=== PATIENT | female | born 1940 | race Caucasian/White ===

== ENCOUNTER 2024-09-03 12:43 | Emergency (ER) | payer MEDICARE ==
[~2024-09-03] VITALS: Ht 165.1 cm; Wt 74.0 kg
[2024-09-03] MEDS ORDERED: DIVALPROEX SOD250 M1 PO (13:31)
[2024-09-03] MEDS ORDERED: ATORVASTATIN CA20 MG PO (13:32)
[2024-09-03] MEDS ORDERED: QUETIAPINE FUM100 MG PO (13:33)
[2024-09-03] MEDS ORDERED: CITALOPRAM HBR10 MG PO (13:33)
[2024-09-03] MEDS ORDERED: MEMANTINE HCL E21 MG PO (13:33)
[2024-09-03 13:54] LABS: BILIRUBIN, URINE NEGATIVE (negative); BLOOD/HGB, URINE NEGATIVE (Negative); KETONE, URINE NEGATIVE (Negative); LEUK ESTERASE, URINE SMALL (negative); NITRITE, URINE POSITIVE (negative); PH, URINE 6.5 (5-7)
[2024-09-03 14:08] LABS: CRYSTALS, URINE AMORPHOUS PHOSPH 1+ (0-1+); EPITHELIAL CELLS, URINE SQUAMOUS 1+ /lpf (0-1+); WHITE BLOOD CELLS, URINE 21-40 /HPF (0-5)
[2024-09-03 14:09] LABS: BACTERIA, URINE 1+ /hpf (negative); CASTS, URINE NONE SEEN \\lpf; COLLECTION TYPE, URINE CATH; REFLEX CULTURE, URINE Yes (No)
[2024-09-03 14:15] VITALS: BP 124/64
[2024-09-03] MEDS ORDERED: NITROFURAN50 MG/5 ML PO (14:27)
== END 2024-09-03 14:30 | disposition home or self-care (01) ==
LOC: ED 12:43
PROVIDERS: Emergency Medicine
DX: N39.0 Urinary tract infection, site not specified (principal); G30.9 Alzheimer's disease, unspecified; F02.818 Dementia in other diseases classified elsewhere, unspecified severity, with other behavioral disturbance; Z88.2 Allergy status to sulfonamides
CPT/HCPCS: 51701; 81001; 87088; 99283-25

== ENCOUNTER 2024-11-13 15:56 | Inpatient (IN) | payer MEDICARE ==
[~2024-11-13] VITALS: Ht 165.1 cm; Wt 51.1 kg
[~2024-11-13 15:56] MED LIST: ATORVASTATIN CA20 MG PO; CITALOPRAM HBR10 MG PO; DIVALPROEX SOD250 M1 PO; MEMANTINE HCL E21 MG PO; NITROFURAN50 MG/5 ML PO; QUETIAPINE FUM100 MG PO
[2024-11-13 16:35] LABS: BASOPHILS 0.5 % (0.1-1.2); EOSINOPHILS 1.5 % (0.7-5.8); HEMOGLOBIN 12.1 g/dL (11.2-15.7); LYMPHOCYTES 23.1 % (19.3-51.7); MCH 31.2 PG (25.6-32.2); MCHC 30.3 g/dL (32.2-35.5); MCV 103.1 fL (79.4-94.8); MONOCYTES 9.3 % (4.7-12.5); NEUTROPHILS 65.3 % (34.0-71.1); PLATELET COUNT 192 K/uL (182-369); RBC 3.88 M/uL (3.93-5.22)
[2024-11-13 16:47] LABS: ALBUMIN 3.4 g/dL (3.4-5.0); ALBUMIN/GLOBULIN RATIO 0.97 (1.1-2.4); ANION GAP 13.9 (7-21); BILIRUBIN, TOTAL 0.6 mg/dL (0.2-1.0); BUN/CREATININE RATIO 58.4 (6.0-28.6); CALCIUM 8.9 mg/dL (8.5-10.1); CREATININE, SERUM 1.13 mg/dL (0.55-1.02); POTASSIUM 3.9 mmol/L (3.5-5.1); PROTEIN, TOTAL 6.9 g/dL (6.4-8.2)
[2024-11-13 16:59] LABS: BILIRUBIN, URINE NEGATIVE (negative); BLOOD/HGB, URINE NEGATIVE (Negative); KETONE, URINE TRACE (Negative); LEUK ESTERASE, URINE NEGATIVE (negative); NITRITE, URINE NEGATIVE (negative)
[2024-11-13] MEDS ORDERED: DEXTROSE 5% 1,000 ML IV SCH (17:00)
[2024-11-13 17:10] LABS: BACTERIA, URINE NONE SEEN /hpf (negative); CASTS, URINE NONE SEEN \\lpf; COLLECTION TYPE, URINE CLEAN CATCH; CRYSTALS, URINE NONE SEEN (0-1+); EPITHELIAL CELLS, URINE 0 /lpf (0-1+); RED BLOOD CELLS, URINE 0-1 /hpf (0-5); REFLEX CULTURE, URINE No (No); WHITE BLOOD CELLS, URINE 0-1 /HPF (0-5)
[2024-11-13] MEDS ORDERED: ondansetron HCL 4 MG/2 ML VIAL IV PRN (18:45)
[2024-11-13] MEDS ORDERED: ACETAMINOPHEN 325 MG TAB PT PRN (18:45)
[2024-11-13 19:03] LABS: BUN/CREATININE RATIO 58.87 (6.0-28.6); CALCIUM 9.3 mg/dL (8.5-10.1); CREATININE, SERUM 1.07 mg/dL (0.55-1.02)
--- NOTE | 2024-11-13 20:35 | NUR ---
PT ARRIVED TO ROOM 120 FROM ER VIA STRETCHER. ON ROOM AIR. EYES OPEN. IRRITABLE AT TIMES, NON VERBAL BUT MAKES NOISES. MOVING ARMS AND LEGS. IVF INFUSING. VITALS AND ASSESSMENTS COMPLETED SHORTLY AFTER. CPOX ON AT BEDSIDE. LUNGS CLER DIM AT BASES. ABD SOFT, LAST BM PER FAMILY 11/10. PTS ABD SOFT, NONTENDER. NO SKIN ISSUES NOTED ON THIS ADMIT. ALL CARES EXPLAINED TO PT AND FAMILY. UNABLE TO ASSESS PTS COMPREHENSION AT THIS TIME. BED ALRMS FOR SAFETY
[2024-11-13 20:43] VITALS: BP 141/779
[2024-11-13 22:06] LABS: ANION GAP 11.5 (7-21); BUN/CREATININE RATIO 61.16 (6.0-28.6); CREATININE, SERUM 1.03 mg/dL (0.55-1.02); POTASSIUM 3.5 mmol/L (3.5-5.1)
--- NOTE | 2024-11-13 23:19 | NUR ---
turns and repositions self in bed, Bed alr, fall precautions in place. on room air, cpox on at bedside, sats wnl. IVF infusing
[2024-11-14] VITALS (10 sets, daily range): BP systolic 99–144; BP diastolic 43–71
--- NOTE | 2024-11-14 01:01 | NUR ---
Not cooperative with labs, labs drawn procedure explained, pt alert to self only. IVf infusing w/o problems. attends dry. turns and repositions self in bed, making small, "no , get away" only. calmed down. Bed alrm in place.
[2024-11-14 01:11] LABS: ANION GAP 13.1 (7-21); BUN/CREATININE RATIO 53.63 (6.0-28.6); CALCIUM 8.9 mg/dL (8.5-10.1); CREATININE, SERUM 1.1 mg/dL (0.55-1.02); POTASSIUM 3.1 mmol/L (3.5-5.1)
--- NOTE | 2024-11-14 01:20 | NUR ---
NA 162, IVF increased to 125cc. pt calm eyes closed.
--- NOTE | 2024-11-14 02:29 | NUR ---
EYES CLOSED, BUT MOVING ALL EXTREMITIES. IVF INFUSING W/O PROBLEMS
--- NOTE | 2024-11-14 04:01 | NUR ---
NOT VERY COOP WITH LAB DRAWS OR CHANGING SOILED ATTENDS. PROCEDURES EXPLAINED. AWAKE, TRYING TO PUNCH AND KICK, IRRITABLE ANGRY MOOD AND TONE OF VOICE "NO, NO, NO" STATED. PROCEDURES EXPLAINED UNABLE TO COMPREHEND. iNCONTINENT OF URINE. ATTENDS CHANGD SKIN CARE, RED PINPOINT LAVERNE BUTTOCKS AREA. LOTION APPLIED. CPOX ON R MIDDLE TOE, SATS WNL. IVF INFUSING W/O PROBLEMS
[2024-11-14 04:07] LABS: ANION GAP 13.3 (7-21); BUN/CREATININE RATIO 60.63 (6.0-28.6); CALCIUM 8.6 mg/dL (8.5-10.1); CREATININE, SERUM 0.94 mg/dL (0.55-1.02); POTASSIUM 3.3 mmol/L (3.5-5.1)
[2024-11-14 05:58] LABS: BASOPHILS 0.6 % (0.1-1.2); EOSINOPHILS 2.8 % (0.7-5.8); HEMATOCRIT 35.9 % (34.1-44.9); HEMOGLOBIN 11.2 g/dL (11.2-15.7); LYMPHOCYTES 23.1 % (19.3-51.7); MCH 31.8 PG (25.6-32.2); MCHC 31.2 g/dL (32.2-35.5); MONOCYTES 8.8 % (4.7-12.5); NEUTROPHILS 64.2 % (34.0-71.1); PLATELET COUNT 187 K/uL (182-369); RBC 3.52 M/uL (3.93-5.22)
--- NOTE | 2024-11-14 05:58 | NUR ---
Pt more awake, not cooperative with lab draw, repositioning. on romm air. non verbalw few words a times, unable to do bedside swallowing assessment as pt would not open mouth and clinched teetch while trying to do this assesment unable to do oral care either. attends dry. NA
[2024-11-14 06:12] LABS: ANION GAP 14.4 (7-21); BUN/CREATININE RATIO 68.67 (6.0-28.6); CALCIUM 8.7 mg/dL (8.5-10.1); CREATININE, SERUM 0.83 mg/dL (0.55-1.02); MAGNESIUM 2.7 mg/dL (1.8-2.4); PHOSPHORUS, INORGANIC 3.1 mg/dL (2.5-4.9); POTASSIUM 3.4 mmol/L (3.5-5.1)
--- NOTE | 2024-11-14 07:43 | NUR ---
MORNING REPORT RECIEVED FROM RANDY ZABALA. PT LAYING FLAT IN BED WITH BED ALARM ON FOR PT SAFETY. PT IS STILL CONFUSED AND ONLY ORIENTED TO SELF. PT KEEPS BENDING ARM AND CAUSING OCCLUSION. PT HAS CALL LIGHT IN REACH AND CURTAIN OPEN FOR PT SAFETY.
--- NOTE | 2024-11-14 08:57 | NUR ---
SET PATIENT UP SO HER COULD FEED HER.
[2024-11-14] MEDS ORDERED: POTASSIUM CHLORIDE 40 MEQ,LIDOCAINE HCL 1% 40 MG in DEXTROSE 5% 250 ML IV ONE (09:00)
[2024-11-14] MEDS ORDERED: ENOXAPARIN SODIUM 40 MG/0.4 ML SYR SUB-Q SCH (09:00)
--- NOTE | 2024-11-14 09:00 | NUR ---
PT SITTING UP IN BED AT THIS TIME. PT IS AT THE BEDSIDE AND PT IS CURRENTLY EATING BREAKFAST WITH ASSISTANCE FROM . PT WAS ABLE TO SWALLOW WITHOUT DIFICULTY. PT CALL LIGHT IN REACH.
--- NOTE | 2024-11-14 10:15 | NUR ---
PT LAYING FLAT IN BED AT THIS TIME. PT IV IN THE LEFT AC STARTED LEAKING AND NEEDED NEW IV PLACED. PT TOLERATED IV START POORLY AND REQUIRED THREE RN'S TO PLACE IV SAFELY. PT HAS CALL LIGHT IN REACH. BED ALARM ACTIVE AT THIS TIME.
--- NOTE | 2024-11-14 11:40 | NUR ---
PT LAYING IN BED, PT HAS A FAMILY MEMEBER IN ROOM WITH PT AND PT IS CALM AND HAS NO CURRENT NEEDS AT THIS TIME. PT CALL LIGHT IN REACH AT THIS TIME.
[2024-11-14] MEDS ORDERED: PHARMACY RENAL DOSE ADJUSTMENT 1 DOSE MISC PO SCH (12:00)
[2024-11-14 12:07] LABS: ANION GAP 14.1 (7-21); BUN/CREATININE RATIO 56.04 (6.0-28.6); CALCIUM 8.6 mg/dL (8.5-10.1); CREATININE, SERUM 0.91 mg/dL (0.55-1.02); POTASSIUM 3.1 mmol/L (3.5-5.1)
--- NOTE | 2024-11-14 12:49 | NUR ---
PT SITTING UP IN BED AT THIS TIME. PT HAS NO CONCERNS AND HAS FLUIDS AND POTASSIUM RUNNING AT THIS TIME. PT CALL LIGHT IN REACH.
[2024-11-14] MEDS ORDERED: MIRALAX17 GM PO (13:38)
[2024-11-14] MEDS ORDERED: VITAMIN D350 MCG PO (13:39)
[2024-11-14] MEDS ORDERED: ACETAMINOPHEN500 M1 PO (13:43)
[2024-11-14] MEDS ORDERED: IMODIUM A-D2 M2 PO (13:45)
[2024-11-14] MEDS ORDERED: AZO STANDARD95 MG PO (13:45)
[2024-11-14] MEDS ORDERED: ALLEGRA ALLERG180 MG PO (13:46)
[2024-11-14] MEDS ORDERED: MILK OF MA400 MG/5 M PO (13:47)
--- NOTE | 2024-11-14 13:48 | NUR ---
MED REC COMPLETE
--- NOTE | 2024-11-14 15:01 | NUR ---
PT LAYING IN BED WITH FAMILY PRESENT AT THIS TIME. PT FAMILY HAS NO CONCERNS AND PT IS CALM AT THIS TIME. PT CALL LIGHT IN REACH IF NEEDED.
--- NOTE | 2024-11-14 16:44 | NUR ---
PT LAYING IN BED AT THIS TIME WITH EYES CLOSED CHEST RISE EQUAL BILAT, FAMILY IS CURRENTLY IN ROOM AT THIS TIME AND PT HAS CALL LIGHT IN REACH.
--- NOTE | 2024-11-14 18:02 | NUR ---
PT LAYING IN BED, PT FAMILY AT BEDSIDE. PT TOLERATED DINNER WELL AND HAD LAB DRAW FOR SODIUM LEVELS. THREE NURSING STAFF WERE IN ROOM TO ASSIST LAB. PT TOLERATED WELL AND HAS CALL LIGHT IN REACH.
--- NOTE | 2024-11-14 18:05 | NUR ---
PT JUST HGAD BLOOD DRAWN - THREE PEOPLE HAD TO HOLD HER EXTREMETIES FOR THE BLOOD DRAW. WHEN I TOOK HER FIRST BP SHE WAS NOT ENJOYING THE CUFF ON HER ARM- IT WAS NOT AN ACCURATE BP - PT AGITATED, TOOK LATER AND HER NUMBERS WERE CLOSER TO WHAT WAS MORE REGULAR FOR THIS PT. PT'S SIDE RAILS UP FOR SAFETY, BED LOW.
[2024-11-14 18:10] LABS: ANION GAP 13.5 (7-21); BUN/CREATININE RATIO 48.23 (6.0-28.6); CALCIUM 8.3 mg/dL (8.5-10.1); CREATININE, SERUM 0.85 mg/dL (0.55-1.02); POTASSIUM 3.5 mmol/L (3.5-5.1)
--- NOTE | 2024-11-14 19:58 | NUR ---
IVF STOPPED AT THIS TIME, NO NEED FOR MIDNIGHT BMP PER DR JAIN'S NEW ORDERS.
--- NOTE | 2024-11-14 20:35 | NUR ---
IN TO ASSIST RN WITH VS AND BRIEF CHANGE, PT PULLED UP IN BED, ALARM IS SET, PT IN VIEW FRO RN STATION
--- NOTE | 2024-11-14 20:44 | NUR ---
Pt continues to be alert to self only. on room air, lungs clear bilat dim at bases. abd soft, praveen. incontinent of urine, skin care, attends in place, much improved periarea redness noted. not very cooperative with pericare, vitals or assessments. All procedures explained prior to. pt hx dementia, unable to assess degree of comprehension. SL LFA patent. unable to do oral care. Bed alrm in place
--- NOTE | 2024-11-14 22:25 | NUR ---
MOVES LEGS, EYES CLOSED, REPOSITIONS SELF IN BED. BED ALARM IN PLACE
--- NOTE | 2024-11-14 22:26 | NUR ---
RESTING, HOB ELEVATED, ON ROOM AIR, R ARM ELEVATED IN PILLOWS, F/C PATENT
--- NOTE | 2024-11-14 23:51 | NUR ---
Moving all extremities. eyes closed. attends dry. Bed alarm in place
--- NOTE | 2024-11-15 02:31 | NUR ---
AWAKE, GROSS MOVEMENT OF LEGS, MOVES AROUND IN BED.
[2024-11-15 05:25] VITALS: BP 111/45
[2024-11-15 05:27] VITALS: BP 111/45
--- NOTE | 2024-11-15 05:35 | NUR ---
resistive to vitals, labs and assessments. moves all over the bed. Bed alrm in place. incontinent of large amount of urine, skin care, red eve improving, barrier cream applied. clean attends in place. Continues to be alert to self only. oral care done w/o problems at this time
[2024-11-15 05:49] LABS: ALBUMIN 2.9 g/dL (3.4-5.0); ALBUMIN/GLOBULIN RATIO 0.94 (1.1-2.4); ANION GAP 13.6 (7-21); BUN/CREATININE RATIO 47.22 (6.0-28.6); CALCIUM 8.2 mg/dL (8.5-10.1); CREATININE, SERUM 0.72 mg/dL (0.55-1.02); MAGNESIUM 2.2 mg/dL (1.8-2.4); PHOSPHORUS, INORGANIC 3.3 mg/dL (2.5-4.9); POTASSIUM 3.6 mmol/L (3.5-5.1)
--- NOTE | 2024-11-15 07:26 | NUR ---
MORNING REPORT RECIEVED FROM RANDY ZABALA. PT SODIUM HAS CONTINUED TO DECREASE AND PT IS SL AT THIS TIME. PT IS RESTING IN BED COMFORTABLY WITH EYES CLOSED, CHEST RISE EQUAL BILAT AT THIS TIME. BED ALARM ON AND CURTAIN OPEN FOR PT SAFETY. CALL LIGHT IN REACH
[2024-11-15] MEDS ORDERED: DEXTROSE 5% 1,000 ML IV SCH (08:00)
--- NOTE | 2024-11-15 09:56 | NUR ---
PT SITTING UP IN BED AT THIS TIME PT REFUSED TO EAT BREAKFAST THIS MORNING, AND IS CURRENTLY RESTING WITH EYES CLOSED CHEST RISE EQUAL BILAT AT THIS TIME. PT BED ALARM ON AND CURTAIN OPEN FOR PT SAFETY.
--- NOTE | 2024-11-15 11:04 | NUR ---
Increased IVF rate to 100ml/hr per Dr. Damico's request, and per emar. Updated Primary RN, Yousif Soriano. Pt's is in the room.
--- NOTE | 2024-11-15 11:23 | NUR ---
PT SITTING UP IN BED WITH EYES CLOSED CHES RISE EQUAL BILAT AT THIS TIME. PT HAS BED ALARM ON AND CURTAIN OPEN FOR PT SAFETY. PT HAS CALL LIGHT IN REACH IF NEEDED AND CAN BE SEEN FROM NURSES STATION.
--- NOTE | 2024-11-15 12:10 | NUR ---
PT SITTING UP IN BED WITH AT BEDSIDE. WAS NOT ABLE TO GET PT TO EAT BUT WAS ABLE TO GET PT TO DRINK FLUIDS SLOWLY. PT IS CALM AND HAPPY AND CONTINUES TO SMILE. PT CALL LIGHT IN REACH AT THIS TIME.
--- NOTE | 2024-11-15 13:05 | NUR ---
PT SITTING UP IN BED EATING LUNCH FED BY FAMILY MEMBER. PT TOLERATING ORAL INTAKE WELL. PT HAD LAB DRAWN WELL AND TOLERATED WELL WITH TWO RN'S IN ROOM. PT HAS CALL LIGHT IN REACH.
[2024-11-15 13:18] LABS: ANION GAP 10.4 (7-21); BUN/CREATININE RATIO 39.74 (6.0-28.6); CALCIUM 8.2 mg/dL (8.5-10.1); CREATININE, SERUM 0.78 mg/dL (0.55-1.02); POTASSIUM 3.4 mmol/L (3.5-5.1)
--- NOTE | 2024-11-15 13:25 | NUR ---
THIS LEGAL NURSE CONSULTANT HAD TROUBLE GETTING PT TO STRAIGHTEN HER ARM FOR B/P. USED A TEMPORAL INSTRUMENT FOR TEMP. PT WAS ABLE TO LEAVE MONITOR ON FINGER FOR O2. PT HAS HAD SEVERAL BLOOD DRAWS, WHICH HAS MADE HER UNEASY ABOUT ANYONE TOUCHING HER ARM. PT WAS IN THE ROOM BY HERSELF IN THE AM, WOULD NOT EAT UNTIL HER GOT TO THE ROOM RIGHT BEFORE THE LUNCH HOUR.
--- NOTE | 2024-11-15 13:58 | NUR ---
PT FLUIDS STOPPED DUE TO LAB DRAW AND MD JAIN VERBAL REQUEST TO STOP FLUIDS IF NA DECREASED. NA DECREASED TO 148. PT UPDATED ON POC.
[2024-11-15 14:00] VITALS: BP 111/45
[2024-11-15] MEDS ORDERED: POTASSIUM CHLORIDE 40 MEQ,LIDOCAINE HCL 1% 40 MG in DEXTROSE 5% 250 ML IV ONE (15:00)
--- NOTE | 2024-11-15 15:21 | NUR ---
PT LAYING IN BED AT THIS TIME LEFT TO GO HOME BUT WILL RETURN SHORTLY. PT IS CALM AND IV ACCESS FLUSHES FINE, IV POTASSIUM HUNG (SEE EMAR). PT TOLERATING WELL AND HAS CALL LIGHT IN REACH WITH CONNER AT BED SIDE.
--- NOTE | 2024-11-15 16:40 | NUR ---
PT LAYING IN BED, IS IN ROOM AT THIS TIME AND PT IS CALM AND QUITE AT THIS TIME HUSBANDS HAS NO CONCERNS FOR PT AND HAS CALL LIGHT IN REACH IF NEEDED.
--- NOTE | 2024-11-15 17:25 | NUR ---
PT REPORSITIONED IN BED TO AND TOLERATED WELL IS IN ROOM AND WILL ATTEMPT TO FEED PT. PT CALL LIGHT IN REACH AT THIS TIME.
[2024-11-15 17:33] LABS: URINE OSMOLALITY 841 mOsm/kg (50-800)
--- NOTE | 2024-11-15 17:55 | NUR ---
PT LAYING IN BED, PT MOVED AND WAS SIDEWAYS IN THE BED, PT LINENS CHANGED AND PT POSITIONED CORRECTLY IN BED, PT IN ROOM AND AGREEABLE WITH POC AT THIS TIME. CALL LIGHT IN REACH, BED ALARM ON FOR PT SAFETY AND CURTAIN OPEN WELL.
[2024-11-15 18:00] VITALS: BP 111/45
[2024-11-15 18:40] VITALS: BP 142/107
--- NOTE | 2024-11-15 18:45 | NUR ---
PT WOULD NOT RELAX HER ARM WHILE THE BP WAS PUMPED UP, SHE DID NOT LIKE THIS. PT ONLY KEPT THE OXIMETER ON FOR A VERY SHORT TIME. PT RESTING IN BED, HER TRIED TO FEED HER DINNER, BUT HAD TO LEAVE IT WAS GETTING LATE. THERE IS WATER IN THIS PT'S ROOM, HER SAID IT DID NOT MATTER IF THERE WAS ICE OR NOT. PT'S BED IS LOW AND SIDE RAILS ARE UP. WE HAVE MOVED HER A COUPLE TIMES, SHE GETS SIDEWAYS OFTEN.
--- NOTE | 2024-11-15 20:32 | NUR ---
pt repositioned in bed. On room air. lungs clear dim at bases. takes shallow breathing. abd soft, praveen, attends in place. repositioned as her legs were hanging over rails. Repositioned several times, alarm in place. Confused speaks some words, turns around in bed by self. fall precautions in place. LS patent
[2024-11-15 22:02] VITALS: BP 137/115
--- NOTE | 2024-11-16 01:16 | NUR ---
eyes closed. mumbling, restless legs,legs go over rails at times jacknifed position, repositions self moving around bed. attends dry.
--- NOTE | 2024-11-16 03:03 | NUR ---
Eyes closed, restless in bed, repositioned many times, pt repositions slef in bed in a jacknifed position sticking legs off rails. cries, screams and tries to hit whwn repositioned. Procedure explained prior to. Pt unable to follow instructions due to impaired mental cognition
[2024-11-16 05:05] VITALS: BP 118/58
--- NOTE | 2024-11-16 05:15 | NUR ---
Awake, not very cooperative with vitals, labs or assessments. procedure explained prior to, pt confused, unable to process information. screaming, hollering, pinching and kicking. require 3 people to help. Incontiennt of urine. skin care to eve area, barrier cream applied. clean atttends in place Bed alarm, fall precautions in place
[2024-11-16 05:32] LABS: ANION GAP 18.4 (7-21); BUN/CREATININE RATIO 25.51 (6.0-28.6); CALCIUM 8.9 mg/dL (8.5-10.1); CREATININE, SERUM 0.98 mg/dL (0.55-1.02); POTASSIUM 4.4 mmol/L (3.5-5.1)
--- NOTE | 2024-11-16 07:40 | NUR ---
MORNING REPORT RECIEVED FROM RANDY ZABALA. PT LAYING FLAT IN BED WITH EYE CLOSED CHEST RISE EQUAL BILAT, PT IS CALM AND QUIET AT THIS TIME. BED ALARMS ON AND CURTAIN OPEN FOR PT SAFETY. CALL LIGHT IN REACH.
--- NOTE | 2024-11-16 07:51 | NUR ---
PATIENT IN BED AT THIS TIME. TOOL ROOM GEAR MACHINE OPERATOR CHARTED HOURLY ROUNDS. CALL LIGHT WITHIN REACH, NO FURTHER NEEDS.
--- NOTE | 2024-11-16 08:33 | NUR ---
PATIENT IN BED AT THIS TIME. THIS [facility] TRIED TO FEED PATIENT, PATIENT REFUSED TO EAT BREAKFAST. RANDY SANDOVAL NOTIFIED. CALL LIGHT WITHIN REACH, NO FRUTHER NEEDS AT THIS TIME.
--- NOTE | 2024-11-16 09:23 | NUR ---
TALKED WITH PATIENT . PERSONAL HEALTH INFORMATION REVIEWED. PATIENT LIVES AT [facility]. PATIENT DOES NOT USE OXYGEN AND IS BEDBOUND. PATIENT WILL USE NON EMERGENT TO TRANSPORT BACK TO [facility]. WILL WAIT FOR DISCHARGE ORDER.
[2024-11-16 09:56] VITALS: BP 124/57
--- NOTE | 2024-11-16 09:59 | NUR ---
PATIENT IN BED AT THIS TIME. THIS CONFIGURATION MANAGEMENT ADMINISTRATOR CHARTED VITALS AND I&O'S. THIS CONFIGURATION MANAGEMENT ADMINISTRATOR AND AUDIE CASTILLO AND RN SEAN CHANGED PATIENTS BRIEF AND PROVIDED MAGGIE CARE. CALL LIGHT WITHIN REACH, NO FURTHER NEEDS AT THIS TIME.
[2024-11-16 10:00] VITALS: BP 124/57
--- NOTE | 2024-11-16 10:00 | NUR ---
PT LAYING IN BED AT THIS TIME. PT HAS NO CURRENT CONCERNS AND IS CALM AT THIS TIME WITH FAMILY IN ROOM.
--- NOTE | 2024-11-16 10:06 | NUR ---
UR CLINICAL REEVIEW: 2 MN FOR [employer] MEET INPT FOR HYPERNATREMIA WITH NEED FOR IVF/SERIAL LABS MEDICARE INPT 11/13/24 @ 1839 ORDER MATCHES REG NO AUTH REQUIRED PER MEDICARE GUIDELINES ANTICIPATE DC 11/16/24
--- NOTE | 2024-11-16 10:26 | NUR ---
PATIENT IN BED A THIS TIME. PATIENT IS VERY AGITATED IF SHE IS BEING TOUCHED. PATIENT REFUSED BED BATH. CALL LIGHT WITHIN REACH, NO FURTHER NEEDS.
--- NOTE | 2024-11-16 11:45 | NUR ---
PT CURRENTLY GETTING DRESSED AND READY FOR DISCHARGE PT TOLERATING WELL WITH FAMILY IN ROOM AT THIS TIME. CALL LIGHT IN REACH.
--- NOTE | 2024-11-16 14:05 | NUR ---
REPORT CALLED TO [facility]. THIS RN GAVE REPORT TO [facility] FOIL OPERATOR DUE TO NO RN ON STAFF AT TIME. [facility] HAD NO FURTHER QUESTIONS.
== END 2024-11-16 13:25 | disposition home or self-care (01) | DRG 641 ==
LOC: ED 15:56 → MS 18:39
PROVIDERS: Emergency Medicine; ADMIT Student in an Organized Health Care Education/Training Program; ATTEND Student in an Organized Health Care Education/Training Program
DX: E87.0 Hyperosmolality and hypernatremia (principal); E46 Unspecified protein-calorie malnutrition; E86.0 Dehydration; G30.9 Alzheimer's disease, unspecified; F02.80 Dementia in other diseases classified elsewhere, unspecified severity, without behavioral disturbance, psychotic disturbance, mood disturbance, and anxiety; Z66 Do not resuscitate; Z88.2 Allergy status to sulfonamides; Z74.01 Bed confinement status; Z68.20 Body mass index [BMI] 20.0-20.9, adult
CPT/HCPCS: 36415; 51701; 80048; 80053; 81001; 83735; 83935; 84100; 84484; 85025; 94762; 99285; J1650; J3480; J3490; J7060; J7070